=== PATIENT | female | born 1995 | race Caucasian/White ===

== ENCOUNTER 2022-08-05 15:03 | Observation (INO) | payer BC ==
[~2022-08-05] VITALS: Ht 172.7 cm; Wt 104.3 kg
== END 2022-08-05 19:02 | disposition home or self-care (01) ==
LOC: SPU 15:03
PROVIDERS: ADMIT Specialist; ATTEND Specialist
DX: O36.8130 Decreased fetal movements, third trimester, not applicable or unspecified (principal); Z3A.37 37 weeks gestation of pregnancy
CPT/HCPCS: 76815; G0378

== ENCOUNTER 2022-08-11 22:23 | Inpatient (IN) | payer BC ==
[~2022-08-11] VITALS: Ht 172.7 cm; Wt 106.1 kg
[2022-08-11] MEDS ORDERED: OXYTOCIN/0.9 % SODIUM CHLORIDE 1,000 ML IV SCH (23:00)
[2022-08-11] MEDS ORDERED: NALBUPHINE HCL 10 MG/ML AMP IM PRN (23:00)
[2022-08-11] MEDS ORDERED: NALBUPHINE HCL 10 MG/ML AMP IVP PRN (23:00)
[2022-08-11] MEDS ORDERED: TERBUTALINE SULFATE 1 MG/ML VIAL SUBCUT ONE (23:00)
[2022-08-12] MEDS: LR 1,000 ML IV SCH ×3 (00:17→13:23)
[2022-08-12 00:40] VITALS: BP_SYST 141
[2022-08-12 00:57] LABS: BASOPHILS % (AUTO) 0.4 % (0.0-2.0); EOSINOPHILS # (AUTO) 0.3 K/uL (0.0-0.4); EOSINOPHILS % (AUTO) 2.4 % (0.0-4.0); HEMATOCRIT 36.4 % (36-48); HEMOGLOBIN 12.5 g/dL (12.0-16.0); LYMPHOCYTES # (AUTO) 1.7 K/uL (1.0-5.5); MEAN CORPUSCULAR HEMOGLOBIN 30 pg (27-31); MEAN CORPUSCULAR HGB CONC 34 % (32-36); MEAN CORPUSCULAR VOLUME 88 fL (79.0-98.0); MONOCYTES # (AUTO) 0.8 K/uL (0.0-1.0); MONOCYTES % (AUTO) 6.9 % (1.7-9.3); NEUTROPHILS # (AUTO) 8.6 K/uL (1.8-7.7); NEUTROPHILS % (AUTO) 75.3 % (40.0-70.0); PLATELET COUNT (AUTO) 199 K/uL (130-430); RED BLOOD CELL COUNT(AUTO) 4.13 MIL/uL (4.2-6.2); RED CELL DISTRIBUTION WIDTH 14.3 % (9.0-15.0); WHITE BLOOD COUNT (AUTO) 11.4 K/uL (4.8-10.8)
[2022-08-12] MEDS ORDERED: fentaNYL CITRATE/PF 100 MCG/2 ML AMP ONE ×2 (01:36→17:29)
[2022-08-12] MEDS ORDERED: ROPIVACAINE HCL/PF 0.2% 200 ML ONE ×2 (01:36→17:27)
[2022-08-12] MEDS ORDERED: LR 500 ML IV ONE (02:00)
[2022-08-12] MEDS ORDERED: FENT2mCg/mL-ROPIVA0.2%/NS EPID 200 ML EP SCH (02:00)
[2022-08-12] MEDS: LABETALOL HCL 100 MG TABLET PO SCH ×2 (08:46→20:05)
[2022-08-12] MEDS ORDERED: OXYTOCIN/0.9 % SODIUM CHLORIDE 1,000 ML IV SCH (19:15)
[2022-08-12] MEDS ORDERED: DERMOPLAST SPRAY TP PRN (19:15)
[2022-08-12] MEDS ORDERED: OXYCODONE/ACETAMINOPHEN 5-325 TABLET PO PRN ×2 (19:15)
[2022-08-12] MEDS ORDERED: LANOLIN 7 GM OINT. TP PRN (19:15)
[2022-08-12] MEDS ORDERED: ANUSOL 1 EA SUPP.RECT (PREPARATION H) RC PRN (19:15)
[2022-08-12] MEDS ORDERED: RHO(D) IMMUNE GLOBULIN/MALTOSE 1500 UNITS/1.3 ML (WINHRO) IM PRN (19:15)
[2022-08-12] MEDS ORDERED: HYDROCORTISONE 0.5% CREAM 28.4 GM CREAM.GM. TP PRN (19:15)
[2022-08-12] MEDS ORDERED: HYDROcodone/ACETAMIN 5-325 MG TAB (NORCO/ VICODIN) PO PRN (19:15)
[2022-08-12] MEDS ORDERED: WITCH HAZEL LEAF 1 MED.PAD MED.PAD TP PRN (19:15)
[2022-08-12] MEDS ORDERED: NALOXONE HCL 0.4 MG/ML AMP (NARCAN) IVP PRN (19:15)
[2022-08-12] MEDS ORDERED: METHYLERGONOVINE MALEATE 0.2 MG TABLET PO PRN (19:15)
[2022-08-12] MEDS ORDERED: OXYTOCIN/0.9 % SODIUM CHLORIDE 1,000 ML IV ONE (19:15)
[2022-08-12] MEDS ORDERED: DIPHTH,PERTUSS(ACELL),TET VAC 0.5 ML VIAL (Tdap) I.M. PRN (19:15)
[2022-08-12] MEDS ORDERED: MEASLES,MUMPS&RUBELLA VACC/PF 12500 UNIT/0.5 ML VIAL SUBQ PRN (19:15)
[2022-08-12] MEDS: IBUPROFEN 600 MG TABLET PO SCH (19:59)
[2022-08-12] MEDS ORDERED: NALOXONE HCL 0.4 MG/ML AMP (NARCAN) ONE (20:15)
[2022-08-12] MEDS ORDERED: SENNOSIDES/DOCUSATE SODIUM 1 TAB TABLET(SENOKOT-S) PO SCH (21:00)
[2022-08-12] MEDS ORDERED: TEMAZEPAM 15 MG CAPSULE PO PRN (21:00)
[2022-08-13] MEDS: IBUPROFEN 600 MG TABLET PO SCH ×3 (02:00→18:42)
[2022-08-13 07:10] LABS: BASOPHILS % (AUTO) 0.3 % (0.0-2.0); EOSINOPHILS # (AUTO) 0.2 K/uL (0.0-0.4); EOSINOPHILS % (AUTO) 1.3 % (0.0-4.0); HEMATOCRIT 37.3 % (36-48); HEMOGLOBIN 12.5 g/dL (12.0-16.0); LYMPHOCYTES # (AUTO) 1.9 K/uL (1.0-5.5); LYMPHOCYTES % (AUTO) 12.5 % (20.5-51.5); MEAN CORPUSCULAR HEMOGLOBIN 30 pg (27-31); MEAN CORPUSCULAR HGB CONC 34 % (32-36); MEAN CORPUSCULAR VOLUME 91 fL (79.0-98.0); MONOCYTES # (AUTO) 1.2 K/uL (0.0-1.0); MONOCYTES % (AUTO) 8.1 % (1.7-9.3); NEUTROPHILS # (AUTO) 11.7 K/uL (1.8-7.7); NEUTROPHILS % (AUTO) 77.8 % (40.0-70.0); PLATELET COUNT (AUTO) 181 K/uL (130-430); RED BLOOD CELL COUNT(AUTO) 4.11 MIL/uL (4.2-6.2); RED CELL DISTRIBUTION WIDTH 14.7 % (9.0-15.0)
[2022-08-13] MEDS ORDERED: DOCUSATE SODIUM 100 MG CAPSULE PO SCH (09:00)
[2022-08-13] MEDS: LABETALOL HCL 100 MG TABLET PO SCH (09:03)
== END 2022-08-13 19:40 | disposition home or self-care (01) | DRG 806 ==
LOC: SPU 22:23
PROVIDERS: ADMIT Specialist; ATTEND Specialist
PROC: 10E0XZZ Delivery of Products of Conception, External Approach (ICD-10-PCS; principal; 2022-08-12)
PROC: 0HQ9XZZ Repair Perineum Skin, External Approach (ICD-10-PCS; 2022-08-12)
PROC: 10907ZC Drainage of Amniotic Fluid, Therapeutic from Products of Conception, Via Natural or Artificial Opening (ICD-10-PCS; 2022-08-12)
PROC: 3E0R3BZ Introduction of Anesthetic Agent into Spinal Canal, Percutaneous Approach (ICD-10-PCS; 2022-08-12)
PROC: 00HU33Z Insertion of Infusion Device into Spinal Canal, Percutaneous Approach (ICD-10-PCS; 2022-08-12)
DX: O10.92 Unspecified pre-existing hypertension complicating childbirth (principal); O41.03X0 Oligohydramnios, third trimester, not applicable or unspecified; Z37.0 Single live birth; Z20.822 Contact with and (suspected) exposure to COVID-19; Z3A.38 38 weeks gestation of pregnancy; O70.0 First degree perineal laceration during delivery
CPT/HCPCS: 36415; 85025; 86592; 86886; 86900; 86901; J2310; J2590; J3010